=== PATIENT | male | born 1955 | race Caucasian/White ===

== ENCOUNTER 2020-09-18 11:44 | Observation (INO) | payer OTHER ==
--- NOTE | 2020-09-18 12:55 | RAD REPORT ---
EXAM DESCRIPTION: CT - Head Brain Wo Cont - 09/18/2020 12:47 pm CLINICAL HISTORY: SYNCOPE Headache, drowsiness COMPARISON: No comparisons TECHNIQUE: All CT scans are performed using dose optimization technique as appropriate and may inclu de automated exposure control or mA/KV adjustment according to patient size. FINDINGS: No intracranial hemorrhage, hydrocephalus or extra-axial fluid collection.Mild brain atrop hy.No areas of brain edema or evidence of midline shift. The paranasal sinuses and mastoids are clear. The calvarium is intact. IMPRESSION: No acute intracranial abnormality.
[2020-09-18 13:26] LABS: Absolute Lymphocytes (CBC) 1.8 K/uL (0.7-4.9); Basophils % 0.6 % (0-1.3); Hematocrit 40.3 % (39.6-49.0); Lymphocytes % 18.4 % (15.3-44.8); MPV 6.9 fL (7.6-11.3); RBC Red Blood Cell Count 4.56 M/uL (4.33-5.43)
[2020-09-18 13:37] LABS: Protime INR 0.99
[2020-09-18 14:02] LABS: ALT/SGPT 26 U/L (12-78); AST/SGOT 14 U/L (15-37); Albumin 4.2 g/dL (3.4-5.0); Alkaline Phosphatase 84 U/L (45-117); BUN Blood Urea Nitrogen 30 mg/dL (7-18); Bicarbonate 25 mmol/L (21-32); Bilirubin Direct 0.2 mg/dL (0-0.2); Bilirubin Total 0.6 mg/dL (0.2-1.0); Glucose Level 131 mg/dL (74-106); Magnesium 1.9 mg/dL (1.8-2.4); NT PRO-BNP 182 pg/mL (<125); Protein, Total 7.8 g/dL (6.4-8.2); Sodium Level 140 mmol/L (136-145); Troponin (Emerg Dept Use Only) < 0.02 ng/mL (0.0-0.045)
--- NOTE | 2020-09-18 14:45 | RAD REPORT ---
EXAM DESCRIPTION: RAD - Chest Single View - 09/18/2020 2:38 pm CLINICAL HISTORY: syncope Chest pain. COMPARISON: No comparisons FINDINGS: Portable technique limits examination quality. The lungs are grossly clear. The heart is upper limit of normal in size. No displaced fractures. IMPRESSION: No acute intrathoracic process suspected.
--- NOTE | 2020-09-18 16:23 | EDPHYS ---
Physician Documentation [facility] Name: Cleveland Montoya Age: 65 yrs Sex: Male : 1955 Arrival Date: 09/18/2020 Time: 11:45 Bed 15 Private MD: ED Physician Juan Ramon Villarreal HPI: 09/18 16:13 This 65 yrs old Male presents to ER via Ambulatory with complaints of Syncope.kdr 16:13 The patient has experienced syncope, became unresponsive, collapsed, lost kdr consciousness. Onset: The symptoms/episode began/occurred suddenly, just prior to arrival. Duration: This was a single episode, that lasted 4 minute(s). Context: the episode(s) was witnessed, by family, occurred at home, occurred while the patient was sitting, Patient states that he had just sat down at a small child's table to eat some breakfast. He then began to feel slightly dizzy. And passed out falling over to the floor. He denies any injury. This was witnessed by his sister. His was in the next room and heard him fall. She mainly went to his side and found him to be unresponsive. She stated that he was unresponsive for approximately 2 minutes. He then became semiconscious. But confused. He did not exhibit any seizure-like activity at any time. After a period of 4 to 5 minutes, he was returned to his normal baseline.. Associated injury: The patient did not suffer any apparent associated injury. Associated signs and symptoms: Pertinent positives: confusion, dizziness, nausea. Current symptoms: Slight nausea. The patient has experienced similar episodes in the past, a few times, The patient states that he has had several episodes where he has had similar experiences. He indicated at one time he was laying on his bed watching TV when he passed out. He is not sure how long he was out at that time. Today, he had just taken a drink of a cold soda and felt slight discomfort prior to passing out. At other times he has been lightheaded and had near syncope when bending over. He has not had any prior evaluation of these symptoms. The patient has not recently seen a physician. Historical: - PMHx: 12:22 Hypertensive disorder; Diabetes mellitus; da3 ROS: 16:13 Constitutional: Negative for fever, chills, and weight loss, Eyes: Negative for injury, kdr pain, redness, and discharge, ENT: Negative for injury, pain, and discharge, Neck: Negative for injury, pain, and swelling, Cardiovascular: Negative for chest pain, palpitations, and edema, Respiratory: Negative for shortness of breath, cough, wheezing, and pleuritic chest pain, Abdomen/GI: Negative for abdominal pain, nausea, vomiting, diarrhea, and constipation, Back: Negative for injury and pain, : Negative for injury, bleeding, discharge, and swelling, MS/Extremity: Negative for injury and deformity, Skin: Negative for injury, rash, and discoloration, Psych: Negative for depression, anxiety, suicide ideation, homicidal ideation, and hallucinations, Allergy/Immunology: Negative for hives, rash, and allergies, Endocrine: Negative for neck swelling, polydipsia, polyuria, polyphagia, and marked weight changes, Hematologic/Lymphatic: Negative for swollen nodes, abnormal bleeding, and unusual bruising. 16:13 Neuro: Positive for altered mental status, dizziness, syncope, Negative for seizure activity, speech changes. Exam: 16:13 Constitutional: This is a well developed, well nourished patient who is awake, alert, kdr and in no acute distress. Head/Face: Normocephalic, atraumatic. Eyes: Pupils equal round and reactive to light, extra-ocular motions intact. Lids and lashes normal. Conjunctiva and sclera are non-icteric and not injected. Cornea within normal limits. Periorbital areas with no swelling, redness, or edema. Neck: Trachea midline, no thyromegaly or masses palpated, and no cervical lymphadenopathy. Supple, full range of motion without nuchal rigidity, or vertebral point tenderness. No Meningismus. Chest/axilla: Normal chest wall appearance and motion. Nontender with no deformity. No lesions are appreciated. Cardiovascular: Regular rate and rhythm with a normal S1 and S2. No gallops, murmurs, or rubs. Normal PMI, no JVD. No pulse deficits. Respiratory: Lungs have equal breath sounds bilaterally, clear to auscultation and percussion. No rales, rhonchi or wheezes noted. No increased work of breathing, no retractions or nasal flaring. Abdomen/GI: Soft, non-tender, with normal bowel sounds. No distension or tympany. No guarding or rebound. No evidence of tenderness throughout. Back: No spinal tenderness. No costovertebral tenderness. Full range of motion. Skin: Warm, dry with normal turgor. Normal color with no rashes, no lesions, and no evidence of cellulitis. MS/ Extremity: Pulses equal, no cyanosis. Neurovascular intact. Full, normal range of motion. Neuro: Awake and alert, GCS 15, oriented to person, place, time, and situation. Cranial nerves II-XII grossly intact. Motor strength 5/5 in all extremities. Sensory grossly intact. Cerebellar exam normal. Normal gait. Psych: Awake, alert, with orientation to person, place and time. Behavior, mood, and affect are within normal limits. Vital Signs: 12:17 BP 126 / 69; Pulse 72; Resp 18; Temp 98.5; Pulse Ox 97% on R/A; da3 12:24 BP 126 / 79; Pulse 72; Resp 18; Temp 98.5; Pulse Ox 97% on R/A; da3 16:00 BP 136 / 76; Pulse 73; Resp 14; Pulse Ox 96% ; vg1 19:48 BP 138 / 70; Pulse 76; Resp 18; Pulse Ox 100% on R/A; em NIH Stroke Scale Scores: 12:17 NIHSS Score: 0 da3 MDM: 16:13 Data reviewed: vital signs, nurses notes, lab test result(s), EKG, radiologic studies. kdr Counseling: I had a detailed discussion with the patient and/or guardian regarding: the historical points, exam findings, and any diagnostic results supporting the discharge/admit diagnosis, lab results, radiology results, the need for further work-up and treatment in the hospital. ED course: Patient remained stable in the emergency department. He had no further episodes of syncope or lightheadedness.. 16:22 Patient medically screened. [facility] 09/18 12:35 Order name: Basic Metabolic Panel kdr 09/18 12:35 Order name: CBC with Diff kdr 09/18 12:35 Order name: LFT's kdr 09/18 12:35 Order name: Magnesium; Complete Time: 15:53 kdr 09/18 12:35 Order name: NT PRO-BNP; Complete Time: 15:53 kdr 09/18 12:35 Order name: PT-INR; Complete Time: 15:53 kdr 09/18 12:35 Order name: Troponin (emerg Dept Use Only); Complete Time: 15:53 kdr 08 12:36 Order name: Basic Metabolic Panel; Complete Time: 15:53 EDMS 09/18 12:36 Order name: CBC with Automated Diff; Complete Time: 13:36 EDMS 09/18 12:36 Order name: Liver (Hepatic) Function; Complete Time: 15:53 EDMS / 12:43 Order name: Glucose, Ancillary Testing; Complete Time: 13:36 EDMS 09/18 18:00 Order name: COVID-19 : Document "Date of Symptom Onset" if Symptomatic. vg1 09/18 18:28 Order name: CORONAVIRUS [facility] 09/18 18:36 Order name: Urine Dipstick-Ancillary EDMS 09/18 12:26 Order name: CT Head Brain wo Cont; Complete Time: 13:36 da3 09/18 12:35 Order name: XRAY Chest (1 view); Complete Time: 15:53 kdr 09/18 12:35 Order name: EKG; Complete Time: 12:36 kdr 09/18 12:35 Order name: Cardiac monitoring; Complete Time: 16:05 kdr 09/18 12:35 Order name: EKG - Nurse/Tech; Complete Time: 13:01 kdr 09/18 12:35 Order name: IV Saline Lock; Complete Time: 13:23 kdr 09/18 12:35 Order name: Labs collected and sent; Complete Time: 13:23 kdr 09/18 17:42 Order name: Echo with Doppler [facility] 09/18 19:39 Order name: SARS-COV-2 RT PCR [facility] 09/18 19:54 Order name: US [facility] 09/18 20:07 Order name: Glucose, Ancillary Testing [facility] 09/18 20:24 Order name: Lipid Profile [facility] 09/18 20:25 Order name: Troponin I [facility] 09/18 20:30 Order name: T4 Free [facility] 09/18 20:30 Order name: Thyroid Stimulating Hormone [facility] 09/18 22:35 Order name: Hemoglobin A1c [facility] 09/18 12:35 Order name: O2 Per Protocol; Complete Time: 13:23 kdr 09/18 12:35 Order name: O2 Sat Monitoring; Complete Time: 13:23 kdr Administered Medications: No medications were administered Disposition Summary: 09/18/20 16:22 Hospitalization Ordered Hospitalization Status: Observation kdr Provider: Prezas, Geovanny kdr Condition: Fair kdr Problem: new kdr Symptoms: have improved kdr Bed/Room Type: Standard kdr Location: Telemetry/MedSurg (observation)(09/18/20 20:12) mw Room Assignment: 221(09/18/20 21:01) bb Diagnosis - Altered mental status, unspecified kdr - Syncope kdr Forms: - Medication Reconciliation Form kdr - SBAR form kdr NIH Stroke Scale - NIH Stroke Score Date: 09/18/2020 Time: 12:17 Total Score = 0 1a. Level of Consciousness (LOC) - 0(Alert) 1b. Level of Consciousness (LOC) (Month \\T\\ Age) - 0(Both) 1c. LOC Commands (Open \\T\\ Closes Eyes/Transition Social Worker) - 0(Both) 2. Best Gaze (Lateral Gaze Paresis) - 0(Normal) 3. Visual Field Loss - 0(No visual loss) 4. Facial Palsy - 0(Normal) 5a. Left Arm: Motor (10-second hold) - 0(No drift) 5b. Right Arm: Motor (10-second hold) - 0(No drift) 6a. Left Leg: Motor (5-second hold - always test supine) - 0(No drift) 6b. Right Leg: Motor (5-second hold - always test supine) - 0(No drift) 7. Limb Ataxia (finger/nose \\T\\ heel/malone - test with eyes open) - 0(Absent) 8. Sensory Loss (pinprick arms/legs/face) - 0(Normal) 9. Best Language: Aphasia (description/naming/reading) - 0(No aphasia) 10. Dysarthria (speech clarity - read or repeat words) - 0(Normal) 11. Extinction and Inattention (visual/tactile/auditory/spatial/personal) - 0(No abnormality) Initials: da3 Signatures: Dispatcher [employer] EDMS Jeimy Sarmiento Martha, RN RN mw Rittger, Kevin, MD MD kdr Cira Weber RN RN bb Allan, David, RN RN da3 Corrections: (The following items were deleted from the chart) 17:41 16:22 Telemetry/MedSurg (observation) kdr bd 17:41 16:22 kdr bd 20:12 17:41 [facility] ER HOLD bd mw 20:12 17:41 ERHOLD- bd mw 21:01 20:12 mw bb
--- NOTE | 2020-09-18 16:23 | ER ---
Nurse's Notes [facility] Name: Cleveland Montoya Age: 65 yrs Sex: Male : 1955 Arrival Date: 09/18/2020 Time: 11:45 Bed 15 Private MD: Diagnosis: Altered mental status, unspecified;Syncope Presentation: 09/18 12:17 Chief complaint: Patient states: passed out. Coronavirus screen: Client denies travel da3 out of the [place] in the last 14 days. Client presents with at least one sign or symptom that may indicate coronavirus-19. Ebola Screen: No symptoms or risks identified at this time. Initial Sepsis Screen: Does the patient have a suspected source of infection? No. Patient's initial sepsis screen is negative. Risk Assessment: Do you want to hurt yourself or someone else? Patient reports no desire to harm self or others. 12:17 Method Of Arrival: Ambulatory da3 12:17 Acuity: ALEX 3 da3 12:24 Acuity: ALEX 3 da3 Triage Assessment: 12:23 General: Appears in no apparent distress. comfortable, well groomed, well nourished. da3 Cardiovascular: Reports syncope. Historical: - PMHx: 12:22 Hypertensive disorder; Diabetes mellitus; da3 Screenin:04 Abuse screen: Denies threats or abuse. Nutritional screening: No deficits noted. vg1 Tuberculosis screening: No symptoms or risk factors identified. Fall Risk No fall in past 12 months (0 pts). No secondary diagnosis (0 pts). IV access (20 points). Ambulatory Aid- None/Bed Rest/Nurse Assist (0 pts). Gait- Normal/Bed Rest/Wheelchair (0 pts) Mental Status- Oriented to own ability (0 pts). Total Stearns Fall Scale indicates No Risk (0-24 pts). Assessment: 12:34 General: Appears in no apparent distress. Behavior is calm, cooperative. Pain: Denies iw pain. Neuro: Level of Consciousness is awake, alert, obeys commands, Oriented to person, place, time, situation, Moves all extremities. Cardiovascular: Rhythm is. 16:04 Reassessment: Patient appears in no apparent distress at this time. Patient and/or vg1 family updated on plan of care and expected duration. Pain level reassessed. Patient is alert, oriented x 3, equal unlabored respirations, skin warm/dry/pink. Patient denies pain at this time. Patient states feeling better. 16:06 Reassessment: Dr Villarreal at bedside. vg1 20:16 Reassessment: Patient and/or family updated on plan of care and expected duration. Pain em level reassessed. 22:51 General: report called to rn. ak2 Vital Signs: 12:17 BP 126 / 69; Pulse 72; Resp 18; Temp 98.5; Pulse Ox 97% on R/A; da3 12:24 BP 126 / 79; Pulse 72; Resp 18; Temp 98.5; Pulse Ox 97% on R/A; da3 16:00 BP 136 / 76; Pulse 73; Resp 14; Pulse Ox 96% ; vg1 19:48 BP 138 / 70; Pulse 76; Resp 18; Pulse Ox 100% on R/A; em NIH Stroke Scale Scores: 12:17 NIHSS Score: 0 da3 ED Course: 11:45 Patient arrived in ED. am2 12:22 Triage completed. da3 12:35 Juan Ramon Villarreal MD is Attending Physician. kdr 12:43 Jeni العلي, DARLENE is Primary Nurse. iw 12:47 CT Head Brain wo Cont In Process Unspecified. EDMS 14:38 XRAY Chest (1 view) In Process Unspecified. EDMS 16:05 Arm band placed on. vg1 16:05 Patient has correct armband on for positive identification. Bed in low position. Call vg1 light in reach. Side rails up X2. Adult w/ patient. 16:21 Geovanny Woodard DO is Hospitalizing Provider. kdr 18:00 No provider procedures requiring assistance completed. vg1 Administered Medications: No medications were administered Outcome: 16:22 Decision to Hospitalize by Provider. kdr 18:00 Admitted to ER Hold. Please see [facility] for further documentation. vg1 18:00 Condition: stable 18:00 Instructed on the need for admit. 23:18 Patient left the ED. ak2 NIH Stroke Scale - NIH Stroke Score Date: 09/18/2020 Time: 12:17 Total Score = 0 1a. Level of Consciousness (LOC) - 0(Alert) 1b. Level of Consciousness (LOC) (Month \T\ Age) - 0(Both) 1c. LOC Commands (Open \T\ Closes Eyes/Specialties Operator) - 0(Both) 2. Best Gaze (Lateral Gaze Paresis) - 0(Normal) 3. Visual Field Loss - 0(No visual loss) 4. Facial Palsy - 0(Normal) 5a. Left Arm: Motor (10-second hold) - 0(No drift) 5b. Right Arm: Motor (10-second hold) - 0(No drift) 6a. Left Leg: Motor (5-second hold - always test supine) - 0(No drift) 6b. Right Leg: Motor (5-second hold - always test supine) - 0(No drift) 7. Limb Ataxia (finger/nose \T\ heel/malone - test with eyes open) - 0(Absent) 8. Sensory Loss (pinprick arms/legs/face) - 0(Normal) 9. Best Language: Aphasia (description/naming/reading) - 0(No aphasia) 10. Dysarthria (speech clarity - read or repeat words) - 0(Normal) 11. Extinction and Inattention (visual/tactile/auditory/spatial/personal) - 0(No abnormality) Initials: da3 Signatures: Dispatcher [employer] Juan Ramon Banda MD MD kdr Munoz, Edgar, RN RN Jeni Walker, RN RN Carly Grullon amAriadna Allen, RN RN [email or web address] Syed Albarado [facility] Dov Dave, RN RN da3
[2020-09-18] MEDS ORDERED: HYDRALAZINE HCL 20 MG/ML VIAL IV PRN (17:35)
[2020-09-18] MEDS ORDERED: ACETAMINOPHEN 500 MG TAB PO PRN (17:46)
[2020-09-18] MEDS ORDERED: ONDANSETRON 4 MG/2 ML VIAL IV PRN (17:46)
[2020-09-18] MEDS ORDERED: HYDROCODONE/APAP 5/325 MG TAB PO PRN (17:51)
--- NOTE | 2020-09-18 17:52 | P.HP ---
Certification for Inpatient Patient admitted to: Observation With expected LOS: <2 Midnights Patient will require the following post-hospital care: Home Health Services Practitioner: I am a practitioner with admitting privileges, knowledge of patient current condition, hospital course, and medical plan of care. Services: Services provided to patient in accordance with Admission requirements found in Title 42 Section 412.3 of the Code of Federal Regulations Patient History Date of Service: 09/19/20 Reason for admission: AMS History of Present Illness: Patient is a 65-year-old male with a past medical history significant for hypertension, HLD and DM2 who presented with complaints of altered mental status after experiencing a syncopal episode. Patient reported that he was at home sitting on the chair about to have breakfast when he felt dizzy and passed out. Patient cannot remember if he hit his head or not. Patient reported that he had a similar episode 1 month ago when he was lying in a prone position watching TV, felt dizzy and passed out. Patient reported that he became confused after the syncopal episode. Patient reported associated signs and symptoms of fatigue, nausea, weakness and diaphoresis. Patient denies any other signs or symptoms. Symptoms are aggravated or relieved by nothing. Patient decided to present to the hospital for medical evaluation Allergies No Known Allergies Allergy (Verified 09/19/20 00:22) Home medications list reviewed: Yes Home Medications: Atorvastatin Calcium 40 mg PO DAILY 09/19/20 Carvedilol [Coreg] 12.5 mg PO BID 09/19/20 Losartan Potassium 100 mg PO DAILY 09/19/20 Metformin HCl 2 tab PO BID 09/19/20 Nifedipine [Nifedipine ER] 90 mg PO DAILY 09/19/20 Potassium Chloride [Klor-Con 10] 20 meq PO BID 09/19/20 Risankizumab-Rzaa [Skyrizi] 150 mg SQ SEECOM 09/19/20 Spironolactone 25 mg PO BID 09/19/20 Trazodone HCl 100 mg PO BEDTIME 09/19/20 - Past Medical/Surgical History -: HLD -: HTN -: DM2 Past Surgical History: Reviewed- Non-Contributory - Family History Mother -: Lung disease Father -: Cancer Brother -: Diabetes - Social History Smoking Status: Never smoker Alcohol use: No CD- Drugs: No Caffeine use: No Place of Residence: Home Review of Systems General: Weakness, Other (Fatigue, diaphoresis ) Eyes: Unremarkable ENT: Unremarkable Respiratory: Unremarkable Cardiovascular: Unremarkable Gastrointestinal: Nausea Musculoskeletal: Unremarkable Integumentary: Unremarkable Neurological: Weakness Lymphatics: Unremarkable Physical Examination - Physical Exam General: Alert, In no apparent distress, Oriented x3 HEENT: Atraumatic, PERRLA, Mucous membr. moist/pink, EOMI, Sclerae nonicteric Neck: Supple, 2+ carotid pulse no bruit, No LAD, Without JVD or thyroid abnormality Respiratory: Clear to auscultation bilaterally, Normal air movement Cardiovascular: Regular rate/rhythm, Normal S1 S2 Capillary refill: <2 Seconds Gastrointestinal: Normal bowel sounds, Soft and benign, No tenderness Musculoskeletal: No swelling, No tenderness Integumentary: No rashes, No breakdown Neurological: Normal gait, Normal speech, Normal strength at 5/5 x4 extr, Normal tone, Normal affect Lymphatics: No axilla or inguinal lymphadenopathy External genitalia: Deferred Rectal: Deferred - Studies Laboratory Data (last 24 hrs) 09/18/20 13:13: PT 11.4, INR 0.99 09/18/20 13:13: WBC 9.70, Hgb 13.9, Hct 40.3, Plt Count 265 09/18/20 13:13: Sodium 140, Potassium 4.0, BUN 30 H, Creatinine 1.51 H, Glucose 131 H, Magnesium 1.9, Total Bilirubin 0.6, AST 14 L, ALT 26, Alkaline Phosphatase 84 Assessment and Plan - Plan --Altered mental status. CT head does not indicate any acute intracranial abnormality. AMS resolved. Continue supportive care. --Syncope. MRI brain pending. Echocardiogram and carotid Doppler pending. We will get some orthostatic vital signs. Clinical Trial Associate consulted. Further management per record press operator. --Hypertension. Stable. Continue home medications. --DM2. BS monitoring with sliding scale insulin. --HLD. Continue statin. --CKD 3a. Baseline functions unknow. We will continue to monitor renal functions --Hx of Psoriasis. Continue home medication --DVT prophylaxis with Heparin subQ. Documentation of Current Medications in the Medical Record - 18+ years old: Code: [id number] - current medications obtained, updated, or reviewed. I have had discussion about advanced directives with the patient during this hospital admission. Addressed code status and /or goals of care. Spent more than 15 minutes. Case discussed withpatient and nurse. Discharge Plan: Home Plan to discharge in: 24 Hours - Advance Directives Does patient have a Living Will: No Does patient have a Durable POA for Healthcare: No - Code Status/Comfort Care Code Status Assessed: Yes Code Status: Full Code Physician Review: Patient Assessed, Agree with Above Assessment and Plan Critical Care: No
[2020-09-18] MEDS: HEPARIN 5000 UNIT/ML 1 ML VIAL SQ SCH (18:00)
[2020-09-18 18:21] VITALS: BMI 33.4
[2020-09-18 18:35] LABS: Urine Blood Negative (Negative); Urine Glucose Trace (Negative); Urine Protein 2+ (Negative); Urine Specific Gravity 1.025 (1.005-1.030); Urine pH 5.5 (5.0-7.0)
--- NOTE | 2020-09-18 19:52 | RAD REPORT ---
EXAM DESCRIPTION: US - CP - 09/18/2020 6:55 pm CLINICAL HISTORY: syncope Headache, drowsiness COMPARISON: No comparisons TECHNIQUE: Real-time sonographic evaluation of both carotid systems was performed. Doppler interroga tion was performed with waveform tracing bilaterally. FINDINGS: Normal high resistance waveforms are noted in both external carotid arteries. The common c arotid arteries and internal carotid arteries show normal low resistance waveforms. Mild plaque is present both carotid bulbs. Peak systolic and end diastolic velocity values and the IC A/CCA ratios are in the non-hemodynamically significant range. Antegrade flow seen in both vertebral arteries. IMPRESSION: Mild plaque is present in both carotid bulbs. No evidence of a hemodynamically significant stenosis.
[2020-09-18 20:30] LABS: Thyroid Stimulating Hormone 0.913 uIU/mL (0.360-3.740)
[2020-09-19] MEDS: HEPARIN 5000 UNIT/ML 1 ML VIAL SQ SCH ×2 (00:18→09:00)
[2020-09-19 01:43] VITALS: O2SAT 94
[2020-09-19] MEDS ORDERED: D50W 25 GM/50 ML SYRINGE IV PRN (05:15)
[2020-09-19] MEDS ORDERED: GLUCAGON 1 MG/VIAL IM PRN (05:15)
[2020-09-19 05:40] LABS: Absolute Lymphocytes (CBC) 2.2 K/uL (0.7-4.9); Basophils % 0.4 % (0-1.3); Hematocrit 36.6 % (39.6-49.0); Lymphocytes % 27.8 % (15.3-44.8); MPV 6.8 fL (7.6-11.3); RBC Red Blood Cell Count 4.18 M/uL (4.33-5.43)
[2020-09-19 05:57] LABS: Potassium 3.3 mmol/L (3.5-5.1)
[2020-09-19] MEDS ORDERED: POTASSIUM CL SA 10 MEQ TAB PO ONE (06:04)
[2020-09-19 06:10] VITALS: TEMP 98.2
[2020-09-19] MEDS: INSULIN -REGULAR HUMAN 50 UNIT/0.5 ML ML SQ SCH ×2 (07:30→11:29)
--- NOTE | 2020-09-19 08:14 | RAD REPORT ---
EXAM DESCRIPTION: MRI - Brain Wo Cont - 09/19/2020 8:03 am CLINICAL HISTORY: Syncope COMPARISON: Head CT dated 09/18/2020 TECHNIQUE: Sagittal T1-weighted images were obtained along with PD/heavily T2-weighted and T2-FLAIR images. Axial DWI and ADC mapping sequences were also obtained along with coronal heavily T2-weighted images were obtained. FINDINGS: No intracranial hemorrhage, mass or acute infarction. There is no edema or shift of midlin e structures. No extra-axial fluid collections. Kraft-matter/white matter junction is preserved. Signa l voids are seen as a normal finding in the major intracranial vessels. Mild chronic small vessel ischemic changes noted. Mastoid air cells and paranasal sinuses are clear. IMPRESSION: No acute intracranial abnormality. Specifically, no evidence of acute infarct. Mild electrotype molder sena small vessel ischemic changes.
[2020-09-19] MEDS ORDERED: carvediloL 12.5 MG TAB PO SCH (09:00)
[2020-09-19] MEDS ORDERED: ATORVASTATIN 40 MG TAB PO SCH (09:00)
[2020-09-19 09:27] VITALS: BP 127/60
--- NOTE | 2020-09-19 10:42 | P.DS ---
Admission Date: 09/18/20 Discharge Date: 09/19/20 Primary Care Provider: MERNA Cain Disposition: ROUTINE DISCHARGE Discharge Condition: GOOD Reason for Admission: AMS Consultations: Cardiology-Dr. John Procedures: COVID: Negative, Vaccinated CT Head: COMPARISON: No comparisons TECHNIQUE: All CT scans are performed using dose optimization technique as appropriate and may include automated exposure control or mA/KV adjustment according to patient size. FINDINGS: No intracranial hemorrhage, hydrocephalus or extra-axial fluid collection.Mild brain atrophy.No areas of brain edema or evidence of midline shift. The paranasal sinuses and mastoids are clear. The calvarium is intact. IMPRESSION: No acute intracranial abnormality. CXR: COMPARISON: No comparisons FINDINGS: Portable technique limits examination quality. The lungs are grossly clear. The heart is upper limit of normal in size. No displaced fractures. IMPRESSION: No acute intrathoracic process suspected. MRI Brain: COMPARISON: Head CT dated 09/18/2020 TECHNIQUE: Sagittal T1-weighted images were obtained along with PD/heavily T2- weighted and T2-FLAIR images. Axial DWI and ADC mapping sequences were also obtained along with coronal heavily T2-weighted images were obtained. FINDINGS: No intracranial hemorrhage, mass or acute infarction. There is no edema or shift of midline structures. No extra-axial fluid collections. Kraft- matter/white matter junction is preserved. Signal voids are seen as a normal finding in the major intracranial vessels. Mild chronic small vessel ischemic changes noted. Mastoid air cells and paranasal sinuses are clear. IMPRESSION: No acute intracranial abnormality. Specifically, no evidence of acute infarct. Mild chronic small vessel ischemic changes. Carotid Doppler: COMPARISON: No comparisons TECHNIQUE: Real-time sonographic evaluation of both carotid systems was performed. Doppler interrogation was performed with waveform tracing bilaterally. FINDINGS: Normal high resistance waveforms are noted in both external carotid arteries. The common carotid arteries and internal carotid arteries show normal low resistance waveforms. Mild plaque is present both carotid bulbs. Peak systolic and end diastolic velocity values and the ICA/CCA ratios are in the non-hemodynamically significant range. Antegrade flow seen in both vertebral arteries. IMPRESSION: Mild plaque is present in both carotid bulbs. No evidence of a hemodynamically significant stenosis. ECHO: Obtained. Medical problem List: Syncope Acute renal injury Hypertension Diabetes mellitus type 2 controlled Hyperlipidemia Chronic hypokalemia Brief History of Present Illness: 65-year-old male with history of hypertension, hyperlipidemia, diabetes mellitus type 2. Patient reported syncopal episode. He has had 2 episodes over the past month. Most recently the patient was sitting on a chair at breakfast time. He felt dizzy and passed out. He cannot remember whether he hit his head or not. He also had a similar episode about 1 month ago while he was lying in a prone position watching TV. Patient reported some fatigue, nausea and weakness. He denied any other chest pain. He has had some palpitations in the past. He has not seen cardiology for this. Patient was admitted for further evaluation and treatment. Hospital Course: Patient presented with syncope. Patient has had 2 episodes over the past 1 to 2 months. This has occurred when sitting or lying unprovoked. The patient had been recently traveling. Patient reported some palpitations as well. Patient was admitted for further evaluation. Cardiac enzymes unremarkable. Patient found to have acute renal injury likely from dehydration. Patient with history of hypertension. Patient has been taking Aldactone. Medication Aldactone was held. Renal function improved. CT head unremarkable. MRI shows no acute stroke. Mild chronic small vessel ischemic changes noted. Patient was seen and evaluated by cardiology. Echocardiogram performed. Carotid ultrasound shows no significant stenosis. Cardiology recommends to discontinue Aldactone. At discharge will recommend to start aspirin 81 mg daily. Recommend to continue with carvedilol 12.5 mg 1 pill twice daily, losartan 100 mg daily, and n ifedipine 90 mg daily. Recommend to monitor blood pressure daily. Recommend to maintain blood pressure less than 130/80. If blood pressures remain elevated further adjustment can be done by his PCP or cardiology. Recommend to recheck labBMP in 1 week to monitor renal function off Aldactone. Patient may continue with his potassium supplementation. Recommend follow-up with cardiology within 1 week. Patient should have cardiac stress test or further cardiac intervention as an outpatient. Patient would benefit with Holter monitor to further evaluate as well. Recommend follow-up with PCP within 1 week to follow-up hospitalization. Recommend no driving at this time until cardiac evaluation as an outpatient is completed. Patient with acute renal injury likely from taking diureticAldactone. This was discontinued at discharge. Patient has chronic hypokalemia. Patient may continue with potassium supplementation as directed. Recommend to recheck labBMP in 1 week to monitor his progress. Further adjustment in medication can be done by his PCP. Patient with hypertension. As mentioned above Aldactone has been discontinued. Patient will continue with his other medications including carvedilol 12.5 mg 1 pill twice daily, losartan 100 mg daily, and nifedipine 90 mg daily. Recommend to maintain blood pressure less than 130/80. If blood pressures remain above 140/90 further adjustment in medication may be required. This can be done with the help of his PCP or hide splitter. Patient with diabetes mellitus type 2. This is well controlled. Hemoglobin A1c 6.3. At discharge patient will continue with Metformin at 1000 mg 1 pill twice daily. Recommend to maintain blood sugar less than 140 fasting and less than 200 after meals. Further adjustment can be done by his PCP. Recommend to recheck in: A1c every 3 to 6 months to monitor his progress. Patient with hyperlipidemia. Total triglycerides 236, LDL 78. At discharge patient may continue with Lipitor 40 mg daily. Recommend to recheck fasting lipid panel in 4 to 6 weeks to monitor his progress. Vital Signs/Physical Exam: Temp Pulse Resp BP Pulse Ox 98.2 F 68 17 127/60 95 09/19/20 04:00 09/19/20 09:26 09/19/20 09:26 09/19/20 09:26 09/19/20 09:26 General: Alert, In no apparent distress, Oriented x3, Cooperative HEENT: Atraumatic Neck: Supple Respiratory: Clear to auscultation bilaterally, Normal air movement Cardiovascular: Normal pulses, Regular rate/rhythm Gastrointestinal: Normal bowel sounds, No tenderness, No masses, No rebound, No guarding Musculoskeletal: No erythema, No tenderness, No warmth Integumentary: No tenderness/swelling Neurological: Normal speech, Normal strength at 5/5 x4 extr, Normal tone, Normal affect Laboratory Data at Discharge: WBC 7.90 K/uL (4.3-10.9) D 09/19/20 05:01 Hgb 12.7 g/dL (13.6-17.9) L 09/19/20 05:01 Hct 36.6 % (39.6-49.0) L 09/19/20 05:01 Plt Count 226 K/uL (152-406) 09/19/20 05:01 PT 11.4 SECONDS (9.5-12.5) 09/18/20 13:13 INR 0.99 09/18/20 13:13 Sodium 143 mmol/L (136-145) 09/19/20 05:01 Potassium 3.3 mmol/L (3.5-5.1) L 09/19/20 05:01 BUN 26 mg/dL (7-18) H 09/19/20 05:01 Creatinine 1.09 mg/dL (0.55-1.3) 09/19/20 05:01 Glucose 107 mg/dL (74-106) H 09/19/20 05:01 Magnesium 1.9 mg/dL (1.8-2.4) 09/18/20 13:13 Total Bilirubin 0.6 mg/dL (0.2-1.0) 09/18/20 13:13 AST 14 U/L (15-37) L 09/18/20 13:13 ALT 26 U/L (12-78) 09/18/20 13:13 Alkaline Phosphatase 84 U/L (45-117) 09/18/20 13:13 Troponin I < 0.02 ng/mL (0.0-0.045) 09/18/20 19:55 Triglycerides 236 mg/dL (<150) H 09/18/20 19:55 Cholesterol 155 mg/dL (<200) 09/18/20 19:55 HDL Cholesterol 30 mg/dL (40-60) L 09/18/20 19:55 Cholesterol/HDL Ratio 5.17 09/18/20 19:55 Home Medications: Aspirin [Aspirin EC 81 MG] 81 mg PO DAILY #90 tablet. 09/19/20 Atorvastatin Calcium 40 mg PO DAILY 09/19/20 Carvedilol [Coreg] 12.5 mg PO BID 09/19/20 Losartan Potassium 100 mg PO DAILY 09/19/20 Metformin HCl 2 tab PO BID 09/19/20 Nifedipine [Nifedipine ER] 90 mg PO DAILY 09/19/20 Potassium Chloride [Klor-Con 10] 20 meq PO BID 09/19/20 Risankizumab-Rzaa [Skyrizi] 150 mg SQ SEECOM 09/19/20 Trazodone HCl 100 mg PO BEDTIME 09/19/20 New Medications: Aspirin [Aspirin EC 81 MG] 81 mg PO DAILY #90 tablet. Physician Discharge Instructions: Patient presented with syncope. Patient has had 2 episodes over the past 1 to 2 months. This has occurred when sitting or lying unprovoked. The patient had been recently traveling. Patient reported some palpitations as well. Patient was admitted for further evaluation. Cardiac enzymes unremarkable. Patient found to have acute renal injury likely from dehydration. Patient with history of hypertension. Patient has been taking Aldactone. Medication Aldactone was held. Renal function improved. CT head unremarkable. MRI shows no acute stroke. Mild chronic small vessel ischemic changes noted. Patient was seen and evaluated by cardiology. Echocardiogram performed. Carotid ultrasound shows no significant stenosis. Cardiology recommends to discontinue Aldactone. At discharge will recommend to start aspirin 81 mg daily. Recommend to continue with carvedilol 12.5 mg 1 pill twice daily, losartan 100 mg daily, and nifedipine 90 mg daily. Recommend to monitor blood pressure daily. Recommend to maintain blood pressure less than 130/80. If blood pressures remain elevated further adjustment can be done by his PCP or cardiology. Recommend to recheck labBMP in 1 week to monitor renal function off Aldactone. Patient may continue with his potassium supplementation. Recommend follow-up with cardiology within 1 week. Patient should have cardiac stress test or further cardiac intervention as an outpatient. Patient would benefit with Holter monitor to further evaluate as well. Recommend follow-up with PCP within 1 week to follow-up [facility]. Recommend no driving at this time until cardiac evaluation as an outpatient is completed. Patient with acute renal injury likely from taking diureticAldactone. This was discontinued at discharge. Patient has chronic hypokalemia. Patient may continue with potassium supplementation as directed. Recommend to recheck labBMP in 1 week to monitor his progress. Further adjustment in medication can be done by his PCP. Patient with hypertension. As mentioned above Aldactone has been discontinued. Patient will continue with his other medications including carvedilol 12.5 mg 1 pill twice daily, losartan 100 mg daily, and nifedipine 90 mg daily. Recommend to maintain blood pressure less than 130/80. If blood pressures remain above 140/90 further adjustment in medication may be required. This can be done with the help of his PCP or hide splitter. Patient with diabetes mellitus type 2. This is well controlled. Hemoglobin A1c 6.3. At discharge patient will continue with Metformin at 1000 mg 1 pill twice daily. Recommend to maintain blood sugar less than 140 fasting and less than 200 after meals. Further adjustment can be done by his PCP. Recommend to recheck in: A1c every 3 to 6 months to monitor his progress. Patient with hyperlipidemia. Total triglycerides 236, LDL 78. At discharge patient may continue with Lipitor 40 mg daily. Recommend to recheck fasting lipid panel in 4 to 6 weeks to monitor his progress. Diet: ADA Activity: Fall precautions Followup: SENIA CONN [Primary Care Provider] - Time spent managing pt's care (in minutes): 55
--- NOTE | 2020-09-20 08:34 | ECHO ---
HEIGHT: 5 ft 6 in WEIGHT: 207 lb 0 oz DATE OF STUDY: 09/19/[address]: Adriana Lassiter 2-DIMENSIONAL: YES M.MODE: YES DOPPLER: YES COLOR FLOW: YES TDS: PORTABLE: DEFINITY: BUBBLE STUDY: DIAGNOSIS: SYNCOPE CARDIAC HISTORY: CATHERIZATION: SURGERY: PROSTHETIC VALVE: PACEMAKER: MEASUREMENTS (cm) DIASTOLIC (NORMALS) SYSTOLIC (NORMALS) IVSd 1.2 (0.6-1.2) LA Diam (1.9-4.0) LVEF 76% LVIDd 5.0 (3.5-5.7) LVIDs 2.7 (2.0-3.5) %FS 45% LVPWd 1.1 (0.6-1.2) Ao Diam 3.1 (2.0-3.7) 2 DIMENSIONAL ASSESSMENT: RIGHT ATRIUM: NORMAL LEFT ATRIUM: NORMAL RIGHT VENTRICLE: NORMAL LEFT VENTRICLE: NORMAL TRICUSPID VALVE: NORMAL MITRAL VALVE: NORMAL PULMONIC VALVE: NORMAL AORTIC VALVE: NORMAL PERICARDIAL EFFUSION: NONE AORTIC ROOT: NORMAL LEFT VENTRICULAR WALL MOTION: NORMAL DOPPLER/COLOR FLOW: NORMAL COMMENTS: NORMAL 2-DIMENSIONAL ECHOCARDIOGRAM WITH DOPPLER. NO WALL MOTION ABNORMALITY. NO EFFUSION. TECHNOLOGIST: NIC TIMMONS
--- NOTE | 2020-09-23 12:41 | CON ---
Date of Consultation: 09/19/2020 Reason For Consultation: Admitted on 09/18/2020 for syncope. I saw the patient on 09/19/2020. History Of Present Illness: Mr. Montoya is a 65-year-old white male without any positive cardiac hist ory. Has a history of hypertension and diabetes. Had an episode of loss of consciousness that occur red while he was standing up and lasted about 4 minutes. The episode was witnessed in the family. T he patient denied any chest pain, nausea, vomiting, diaphoresis, PND, orthopnea, pedal edema, palpita tions, or syncope. He did have some dizziness before the episode occurred. He was slightly confused after the episode. There were no apparent seizure activities. Past Medical History: As stated above. Allergies: NONE. Review of Systems: Negative. Social History: Negative. Family History: Noncontributory. Medications: At home included aspirin, Lipitor, Coreg, losartan, metformin, nicardipine, potassium, and trazodone. Physical Examination: Vital Signs: Stable. Afebrile. HEENT: Negative. Neck: Supple with no bruit. Chest: Clear to auscultation and percussion. Cardiac: Revealed a regular rhythm and rate. No murmurs, gallops, or rubs. Abdomen: Benign. Extremities: Revealed no clubbing, cyanosis, or edema. Diagnostic Data: Showed a creatinine of 1.51, potassium was 3.3, glucose was 142, triglyceride was 2 36. He had a carotid ultrasound that showed some mild plaquing. He had a head CT that was unremarka ble. A chest x-ray was negative. Echocardiogram that was done was also normal without any effusion or wall motion abnormalities. Impression And Plan: Syncope in a patient with hypertension, diabetes, dyslipidemia. This is most l ikely secondary to orthostatic hypotension. However, considering his risk factors, I think he should have an MPI as an outpatient. I think he should have an event monitor to rule out atrial fibrillati on or high-degree atrioventricular block. I will make arrangements for that to have to be done in my office today when he gets discharged. I will see what that shows. The patient is out of town. He will have the monitor result by the time he sees his fuel management handler or Internal Medicine. If I see any thing on that monitor, I will let him know. As far as his medication, when he goes home, I would con tinue his present regimen, had to be well hydrated. I would hold the losartan for now. His creatini ne after hydration was back to normal. His potassium need to be supplemented before he goes home. T he case was discussed with Dr. Woodard. FRED/KRISTI Voice ID: [id number] Report ID: [id number]
== END 2020-09-19 14:10 | disposition home or self-care (01) ==
LOC: ER 11:44 → ERHOLD 17:33 → 2ND 21:12
PROVIDERS: ADMIT Family Medicine; ATTEND Family Medicine
DX: R55 Syncope and collapse (principal); N17.9 Acute kidney failure, unspecified; R41.82 Altered mental status, unspecified; I10 Essential (primary) hypertension; E11.9 Type 2 diabetes mellitus without complications; E78.5 Hyperlipidemia, unspecified; E87.6 Hypokalemia; L40.9 Psoriasis, unspecified; Z20.822 Contact with and (suspected) exposure to COVID-19; Z83.3 Family history of diabetes mellitus; Z80.9 Family history of malignant neoplasm, unspecified
CPT/HCPCS: 93005; 93306; 85025 ×2; 80048 ×2; 36415 ×2; 83735; 85610; 80061; 82947 ×3; 80076; 84443; 81003; 83036; 84484 ×2; 84439; 83880 ×2; 70450; 71045; 93880; 70551; 99285; U0003; G0378 ×2; J1644